=== PATIENT | female | born 1985 | race Caucasian/White ===

== ENCOUNTER 2017-02-14 02:02 | Emergency (ER) | payer SELFPAY ==
[~2017-02-14] VITALS: Ht 157.5 cm; Wt 82.0 kg
[2017-02-14] MEDS ORDERED: MAGNESIUM/ALUMINUM HYDROXIDE/SIMETHICONE 30ML UDC PO STA (02:53)
[2017-02-14] MEDS ORDERED: KETOROLAC 30MG/ML VIAL IV ONE (03:00)
[2017-02-14 03:14] LABS: BASOPHILS % 0.9 % (0.0-2.0); EOSINOPHILS % 2.7 % (0.0-5.0); HEMATOCRIT. 35.3 % (36.0-48.0); HEMOGLOBIN. 11.9 g/dL (12.0-16.0); LYMPHOCYTES % 31.4 % (20.0-50.0); MEAN CORPUSCULAR HEMOGLOBIN 29.2 pg (28.0-32.0); MEAN CORPUSCULAR VOLUME 86.3 fL (81.0-99.0); MEAN PLATELET VOLUME 8.5 fl (7.4-10.4); MONOCYTES % 5.2 % (2.0-8.0); NEUTROPHILS % 59.8 % (40.0-76.0); PLATELET 295 x1000/uL (130-400); RED BLOOD CELL COUNT 4.09 mill/uL (4.2-5.4); RED CELL DISTRIBUTION WIDTH 13.1 % (11.6-14.6)
[2017-02-14 03:26] LABS: CARBON DIOXIDE 26 mEq/L (21-32); CHLORIDE 107 mEq/L (98-107); TROPONIN I < 0.02 ng/mL (0.00-0.04)
[2017-02-14 05:25] VITALS: BP 133/77
== END 2017-02-14 06:45 | disposition home or self-care (01) ==
LOC: ER 02:02
DX: R07.89 Other chest pain (principal); R20.0 Anesthesia of skin; R11.0 Nausea; R03.0 Elevated blood-pressure reading, without diagnosis of hypertension
CPT/HCPCS: 36415; 71010; 80053; 83690; 84484; 85025; 85379; 93005; 96374; 99285; J1885; Z7610